=== PATIENT | female | born 1985 ===

== ENCOUNTER 2021-04-06 11:41 | Emergency (ER) | payer OTHER, SELFPAY ==
[2021-04-06 11:50] VITALS: BP 131/97; PULSE 87; RESP 18; TEMP 36.6; O2SAT 99; BMI 34.2
[2021-04-06 12:15] LABS: IDNOW Serial# 08D9AD1C; Strep A Nucleic Acid Negative (Negative)
[2021-04-06 12:16] LABS: COVID-19 Test Negative (Negative)
--- NOTE | 2021-04-06 12:53 | ED_ITS ---
HPI - General Adult General Chief complaint: Upper Respiratory Symptoms Stated complaint: sore throat Time Seen by Provider: 04/06/21 12:53 Source: patient Limitations: no limitations History of Present Illness HPI narrative: Patient presents to the ER complaining of sore throat. Patient has been vaccinated for COVID-19. No known sick contacts. Throat has been scratchy worsening with swallowing. Patient does have a tobacco history. Patient is not currently on any medications denies any recent sick contacts or known travel history. Symptoms mild to moderate. No other complaints at this time Related Data Allergies Allergy/AdvReac Type Severity Reaction Status Date / Time No Known Allergies Allergy Unverified 01/21/20 15:56 bees Allergy Unknown anaphylaxis Uncoded 05/16/17 00:00 Review of Systems Constitutional: Constitutional: Denies chills, Denies fever(s) and Denies headache(s) ENT: Denies headache(s), Denies nasal congestion and Reports sore throat Cardiovascular: Cardiovascular: Denies chest pain and Denies dyspnea Respiratory: Respiratory: Denies cough and Denies dyspnea Musculoskeletal: Musculoskeletal: Denies back pain Integumentary/Breasts: Skin/Breast: Denies rash Neurologic: Denies headache(s) [facility] Past Medical History Attestation statement: The following information was validated with the patient. Social History Social History Advance Directives: No Advance Directives Information Provided: No Physical Exam Vital Signs: Vital Signs: Last Vital Signs Temp 97.9 F 04/06/21 11:50 Pulse 87 04/06/21 11:50 Resp 18 04/06/21 11:50 BP 131/97 H 04/06/21 11:50 Pulse Ox 99 04/06/21 11:50 BMI result Body Mass Index 34.2 vital signs have been reviewed as normal and appeared to be correct. Blood pressure normal. Heart rate normal. Respiration rate normal. Temperature normal. Oxygen saturation normal. Appearance: Alert. Oriented X3. No acute distress. Head: Normal external exam. Normocephalic. Atraumatic. No Amato signs noted. No raccoon eyes noted Eyes: PERRLA. EOMI. Conjunctiva and sclera normal. Eyelids normal. ENT: Pharynx normal. Uvula midline. Moist mucous membranes. No trismus noted. No drooling noted. No muffled voice noted. No evidence of peritonsillar abscess Neck: Soft full range of motion, no JVD CVS: Heart regular rate and rhythm no murmurs and rubs Respiratory: Breath sounds are clear to auscultation bilaterally. No accessory muscle use noted. Skin: Skin warm and dry. Normal skin color. Normal skin turgor. No rashes Extremities: No lower extremity edema. Extremities exhibit normal range of motion. Extremities nontender. Neuro: Oriented X 3. No motor deficit. No sensory deficit. Reflexes normal. Course Course Course Narrative: COVID-19 Acute pharyngitis Viral syndrome URI COVID-19 swab is negative rapid throat swab is negative symptoms likely secondary to viral URI symptomatic treatment only follow-up with PCP as needed Medical Decision Making Lab Data Labs: Lab Results 04/06/21 04/06/21 Range/Units 11:53 11:53 COVID-19 (GABE) Negative (Negative) COVID-19 Clin Com See Note S. pyogenes GrpA KACIE Negative (Negative) Discharge Plan Discharge Clinical Impression: Upper respiratory infection Qualifiers: URI type: unspecified viral URI Qualified Code(s): J06.9 - Acute upper respiratory infection, unspecified Patient Disposition: Home, Self-Care Instructions: Upper Respiratory Infection (ED) Additional Instructions: Warm salt water gargles Increase fluids rest COVID-19 test is negative If throat culture returns positive they will call you
== END 2021-04-06 13:06 | disposition home or self-care (01) ==
PROVIDERS: Emergency Provider Emergency Medicine
DX: J06.9 Acute upper respiratory infection, unspecified (principal); Z20.822 Contact with and (suspected) exposure to COVID-19; J02.9 Acute pharyngitis, unspecified
CPT/HCPCS: 36415; 87635; 87651; 99283

== ENCOUNTER 2022-11-21 14:17 | Emergency (ER) | payer SELFPAY ==
--- NOTE | 2022-11-21 14:34 | ED.WOUNDLAC ---
HPI - Wound/Laceration General Chief Complaint: Skin/Abscess/Foreign Body Stated Complaint: Abscess Under R Arm Time Seen by Provider: 11/21/22 16:43 Related Data Allergies Allergy/AdvReac Type Severity Reaction Status Date / Time No Known Allergies Allergy Verified 11/21/22 14:37 bees Allergy Unknown anaphylaxis Uncoded 05/16/17 00:00 Physical Exam Vital Signs: Vital Signs: Last Vital Signs Temp 98.0 F 11/21/22 14:35 Pulse 88 11/21/22 14:35 Resp 20 11/21/22 14:35 BP 139/98 H 11/21/22 14:35 Pulse Ox 98 11/21/22 14:35 O2 Del Method Room Air 11/21/22 14:35 BMI result Body Mass Index 35.7 Course Course Course Narrative: RME - 37 yo female presents to the ER for evaluation of a painful boil under her right underarm for the last 2 weeks. hx similar requiring I&D Plan: I&D Discharge Plan Discharge Patient Disposition: Left Without Being Seen Interventions: LWBS Worksheet Last Done: 11/21/22 16:36
[2022-11-21 14:35] VITALS: BP 139/98; PULSE 88; RESP 20; TEMP 36.7; O2SAT 98; BMI 35.7
== END 2022-11-21 17:09 | disposition left against medical advice (07) ==
LOC: HO.ED 17:09
PROVIDERS: Emergency Provider Internal Medicine
DX: L02.413 Cutaneous abscess of right upper limb (principal)
CPT/HCPCS: 99281

== ENCOUNTER 2024-01-11 01:56 | Emergency (ER) | payer MEDICAID, SELFPAY ==
[2024-01-11 02:06] VITALS: BP 138/95; BP 148/98; PULSE 100; PULSE 93; RESP 16; TEMP 36.4; O2SAT 97; O2SAT 99; BMI 38.9
[2024-01-11 03:01] LABS: MANUAL DIFF FLAG NO
[2024-01-11 03:04] LABS: Basophils Absolute Auto 0.1 X10*3/uL (0.0-0.2); Basophils Percent Auto 0.6 % (0-2); Eosinophils Absolute Auto 0.1 X10*3/uL (0.0-0.4); Eosinophils Percent Auto 1.1 % (0-4); Hematocrit 33.6 % (37.0-47.0); Hemoglobin 11.2 g/dl (12.0-16.0); Imm Gran Abs Auto 0.02 X10*3/uL (0.00-0.03); Imm Gran Pct Auto 0.2 % (0.0-0.4); Lymphocytes Absolute Auto 2.3 X10*3/uL (1.2-4.9); Mean Corpuscular HGB Conc 33.3 g/dl (31.0-35.0); Mean Corpuscular Hemoglobin 27.6 pg (27.0-33.0); Mean Corpuscular Volume 82.8 fL (80.0-98.0); Mean Platelet Volume 9.5 fL (9.4-12.3); Monocytes Absolute Auto 0.7 X10*3/uL (0.1-1.2); Monocytes Percent Auto 6.9 % (2-11); Neutrophils Absolute Auto 6.8 x10*3/uL (2.0-8.3); Neutrophils Percent Auto 68.2 % (45-73); Platelet Count 365 X10*3/uL (160-400); Red Blood Count 4.06 X10*6/uL (4.20-5.50); Red Cell Distribution Width 15.7 % (11.0-16.0)
[2024-01-11 03:04] LABS: Appearance Urine Cloudy; Color Urine Dark Yellow; Glucose Urine UA Negative (Negative); Leukocyte Esterase Urine Small (1+) (Negative); Nitrite Urine Negative (Negative); Specific Gravity - Urine 1.025 (1.005-1.025); UMIC TRIGGER UA YES; Urine Blood Large (3+) (Negative); Urine Ketones Trace mg/dL (Negative); Urine Protein 30 (1+) mg/dL (Neg-Trace)
[2024-01-11 03:05] LABS: UPreg QC Valid YES; Urine Pregnancy NEGATIVE (NEGATIVE)
[2024-01-11 03:07] LABS: Bacteria Urine 1+ (None Seen); Hyaline Casts Urine 0-2 /LPF (0-2); RBC Urine >20 /HPF (0-2)
[2024-01-11 03:18] LABS: Amphetamine Screen Urine Not Detected (Not Detect); Barbiturates, Urine Not Detected (Not Detect); Benzodiazepines Screen Urine Not Detected (Not Detect); Buprenorphine Scr Not Detected (Not Detect); Cannabinoid Screen Urine POSITIVE (Not Detect); Cocaine Screen Urine Not Detected (Not Detect); Fentanyl, urine Not Detected (Not Detect); Methadone Screen, Urine Not Detected (Not Detect); Opiate Screen Urine Not Detected (Not Detect); Oxycodone Screen Urine Not Detected (Not Detect); Phencyclidine Screen Urine Not Detected (Not Detect)
[2024-01-11 03:19] LABS: Alanine Aminotransferase 20 U/L (0-31); Albumin Level 3.6 g/dL (3.5-5.0); Alkaline Phosphatase 90 U/L (39-117); Anion Gap 14 (12-20); Aspartate Amino Transferase 14 U/L (5-31); Bilirubin Total 0.2 mg/dL (0.0-1.0); Blood Urea Nitrogen 11 mg/dL (9-16); Calcium 8.8 mg/dL (8.4-10.2); Carbon Dioxide 23 mmol/L (22-29); Chloride 106 mmol/L (96-108); Estimated Glomerular Filt Rate > 60; Ethanol < 10 mg/dL; Glucose Random 129 mg/dL (60-115); Potassium 3.8 mmol/L (3.3-5.1); Sodium 139 mmol/L (135-145); Total Protein 7.4 g/dL (6.5-8.0)
--- NOTE | 2024-01-11 04:03 | ED_ITS ---
HPI - General Adult General Chief complaint: Psychiatric Symptoms Stated complaint: SI w/ plan need crisis eval med not working Time Seen by Provider: 01/11/24 04:03 History of Present Illness ED Provider: Amna CARRANZA narrative: The patient is a 39-year-old female who has a history of depression. She says about 3 months ago she stopped taking her medications. She has had worsening depression. She brought herself to the emergency department by ambulance today because she has continued to feel depressed despite a recent hospitalization at [facility]. She has a sense of suicidal ideation although she has not done anything to harm herself to this point. She does not feel medically ill. She has had no fever, sweats, chills. No significant headache, chest pain, abdominal pain, nausea, vomiting. Related Data Allergies Allergy/AdvReac Type Severity Reaction Status Date / Time No Known Allergies Allergy Verified 01/11/24 02:14 bees Allergy Unknown anaphylaxis Uncoded 05/16/17 00:00 Review of Systems 2 Review of Systems: Yes all other systems are reviewed and are negative [facility] Social History Social History Do you have a plan to hurt others: No Plan Physical Exam ED Vital Signs: Vital Signs - 24 hr 01/11/24 02:06 Temperature 97.5 F Pulse Rate 100 Respiratory Rate 16 Blood Pressure 138/95 H Pulse Oximetry 97 Oxygen Delivery Method Room Air BMI result Body Mass Index 38.9 Const Other: The patient was sleeping when I walked into the room but she awoke easily with verbal stimulation. She awoke to a normal mental status. She does not seem in distress. She was pleasant and cooperative. HENMT Other: Face was symmetrical. Mucous membranes moist. Eyes Other: Round equal, conjunctivae clear Extraocular movements intact. Neck Neck: Yes full ROM Resp Effort & Inspection: normal respiratory effort Auscultation: clear to auscultation bilaterally Cardio Rate: regular rate Rhythm: regular rhythm Heart sounds: S1 normal heart sound present and S2 normal heart sound present GI Other: Abdomen is soft and nontender Skin Other: The skin is dry and unremarkable Neuro Other: The patient was sleeping but awoke easily to a normal mental status. She was pleasant and cooperative. Cranial nerves are grossly intact. She moves all of her extremities normally and appropriately and seems neurologically intact. Extrem Other: No peripheral edema Medical Decision Making Medical Decision Making [facility] Narrative: The patient is a 39-year-old female with a history of depression and previous psychiatric hospitalization who presents to the emergency room with worsening depression and suicidal ideation. She has not done anything to harm herself to this point. Standard labs are unremarkable. Her urinalysis is mildly abnormal but she does not have symptoms of urinary tract infection. Tox screen is positive for marijuana but otherwise negative. The patient is medically cleared for evaluation by the care team. Lab Data 01/11/24 02:42 01/11/24 02:42 Labs: Lab Results 01/11/24 01/11/24 Range/Units 02:41 02:42 WBC 10.0 (4.8-10.8) X10*3/uL RBC 4.06 L (4.20-5.50) X10*6/uL Hgb 11.2 L (12.0-16.0) g/dl Hct 33.6 L (37.0-47.0) % MCV 82.8 (80.0-98.0) fL MCH 27.6 (27.0-33.0) pg MCHC 33.3 (31.0-35.0) g/dl RDW 15.7 (11.0-16.0) % Plt Count 365 (160-400) X10*3/uL MPV 9.5 (9.4-12.3) fL Immature Gran % (Auto) 0.2 (0.0-0.4) % Neut % (Auto) 68.2 (45-73) % Lymph % (Auto) 23.0 (20-40) % [place] % (Auto) 6.9 (2-11) % Eos % (Auto) 1.1 (0-4) % Baso % (Auto) 0.6 (0-2) % Lymph # (Auto) 2.3 (1.2-4.9) X10*3/uL [place] # (Auto) 0.7 (0.1-1.2) X10*3/uL Eos # (Auto) 0.1 (0.0-0.4) X10*3/uL Baso # (Auto) 0.1 (0.0-0.2) X10*3/uL Abs Immat Gran (auto) 0.02 (0.00-0.03) X10*3/uL Absolute Neuts (auto) 6.8 (2.0-8.3) x10*3/uL Absolute Nucleated RBC 0.000 (0.0-0.012) X10*3/uL Nucleated RBC % (auto) 0.0 (0.0-0.2) /100WBC Sodium 139 (135-145) mmol/L Potassium 3.8 (3.3-5.1) mmol/L Chloride 106 (96-108) mmol/L Carbon Dioxide 23 (22-29) mmol/L Anion Gap 14 (12-20) BUN 11 (9-16) mg/dL Creatinine 0.81 (0.5-1.4) mg/dL Estim Creat Clear Calc 137.0 Estimated GFR > 60 Random Glucose 129 H (60-115) mg/dL Calcium 8.8 (8.4-10.2) mg/dL Total Bilirubin 0.2 (0.0-1.0) mg/dL AST 14 (5-31) U/L ALT 20 (0-31) U/L Alkaline Phosphatase 90 (39-117) U/L Total Protein 7.4 (6.5-8.0) g/dL Albumin 3.6 (3.5-5.0) g/dL Urine Color Dark Yellow Urine Appearance Cloudy Urine pH 6.0 (5.0-9.0) Ur Specific [place] 1.025 (1.005-1.025) Urine Protein 30 (1+) H (Neg-Trace) mg/dL Urine Glucose (UA) Negative (Negative) mg/dL Urine Ketones Trace (Negative) mg/dL Urine Blood Large (3+) H (Negative) Urine Nitrite Negative (Negative) Ur Leukocyte Esterase Small (1+) H (Negative) Urine RBC >20 H (0-2) /HPF Urine WBC 6-10 H (0-5) /HPF Ur Squamous Epith Cells 6-10 (0-2) /HPF Urine Bacteria 1+ (None Seen) Hyaline Casts 0-2 (0-2) /LPF Urine Test NEGATIVE (NEGATIVE) Urine Opiates Screen Not Detected (Not Detect) Ur Buprenorphine Scrn Not Detected (Not Detect) ng/mL Ur Oxycodone Screen Not Detected (Not Detect) ng/mL Urine Methadone Screen Not Detected (Not Detect) ng/mL Urine Fentanyl Screen Not Detected (Not Detect) Ur Barbiturates Screen Not Detected (Not Detect) Ur Phencyclidine Scrn Not Detected (Not Detect) Ur Amphetamines Screen Not Detected (Not Detect) U Benzodiazepines Scrn Not Detected (Not Detect) Urine Cocaine Screen Not Detected (Not Detect) U Marijuana (THC) Screen POSITIVE H (Not Detect) Ethyl Alcohol < 10 mg/dL Discharge Plan Discharge Clinical Impression: Depression Patient Disposition: Still a Patient Print Language: Italian
--- NOTE | 2024-01-11 04:13 | PC.NURSE ---
Pt is intermitently resting, easy to arouse with verbal stimuli. Calm and cooperative, appropriate with staff. Skin is W/P/D. No acute distress observed. Verbalized needs appropriately. Appears comfortable in bed when resting and changes positions independently as desired. Independent with ADLs and toileting. Safety checks are ongoing every 15 minutes. Will continue to monitor for any changes.
--- NOTE | 2024-01-11 06:41 | PC.NURSE ---
Pt is OOB to use the bathroom.
[2024-01-11 07:09] LABS: Glucose, Whole Blood 100 mg/dL (60-115)
[2024-01-11 09:09] VITALS: RESP 16
--- NOTE | 2024-01-11 09:10 | PC.NURSE ---
Assumed care of patient at 0645, patient appears to be sleeping, respirations even and unlabored, no apparent distress at this time. Continue plan of care for inpatient bedsearch at this time
[2024-01-11] MEDS: Acetaminophen 325 MG TABLET 975 MG PO ×2 (12:24→19:58)
[2024-01-11] MEDS: LORazepam 1 MG TABLET PO (12:24)
[2024-01-11 13:26] LABS: Glucose, Whole Blood 121 mg/dL (60-115)
[2024-01-11 13:34] VITALS: RESP 16
[2024-01-11 18:40] LABS: Glucose, Whole Blood 127 mg/dL (60-115)
--- NOTE | 2024-01-11 19:17 | PC.NURSE ---
patient appears to remain at rest presently respirations are even and unlabored patient appears in no distress.
[2024-01-11] MEDS: QUEtiapine Fumarate 50 MG TABLET PO (19:39)
[2024-01-11 19:48] VITALS: BP 147/94; PULSE 83; RESP 20; TEMP 36.1; O2SAT 100
[2024-01-11 19:58] VITALS: BP 147/94; PULSE 83
[2024-01-11] MEDS: Propranolol HCL 20 MG TABLET PO (19:58)
[2024-01-11] MEDS: QUEtiapine Fumarate 300 MG TABLET PO (19:58)
[2024-01-11] MEDS: Divalproex Sodium 500 MG TABLET.DR PO (19:59)
[2024-01-11] MEDS: valACYclovir HCL 1,000 MG TABLET 1000 MG PO ×2 (20:01)
[2024-01-12 06:36] VITALS: RESP 17
--- NOTE | 2024-01-12 06:57 | PC.NURSE ---
Assumed care of patient at 0645, patient appears to be sleeping, respirations even and unlabored, no apparent distress noted. Continue plan of care for inpatient bedsearch on section 12a
[2024-01-12] MEDS: Cholecalciferol (Vitamin D3) 25 MCG TABLET 50 MCG PO (09:04)
[2024-01-12] MEDS: metFORMIN HCl 500 MG TABLET PO (09:04)
[2024-01-12] MEDS: Divalproex Sodium 500 MG TABLET.DR PO (09:04)
[2024-01-12] MEDS: Propranolol HCL 20 MG TABLET PO (09:05)
[2024-01-12] MEDS: Ferrous Sulfate 324 MG TABLET.DR PO (09:05)
--- NOTE | 2024-01-12 11:09 | MHC.CARE ---
LANDEN completed- initial boarding # [id number]
[2024-01-12 12:46] VITALS: BP 148/86; PULSE 74; RESP 16; TEMP 36.6; O2SAT 98
== END 2024-01-12 12:48 | disposition home or self-care (01) ==
PROVIDERS: Emergency Medicine; Emergency Provider Emergency Medicine Emergency Medical Services
DX: F32.A Depression, unspecified (principal); R45.851 Suicidal ideations; Z91.199 Patient's noncompliance with other medical treatment and regimen due to unspecified reason
CPT/HCPCS: 36415; 80053; 80307; 81001; 81025; 82947; 85025; 99285; S9485